=== PATIENT | male | born 1950 | race American Indian/Alaskan Native ===

== ENCOUNTER 2018-01-18 08:39 | Emergency (ER) | payer MEDICARE ==
[2018-01-18 09:11] VITALS: BP 170/98; PULSE 77; RESP 16; TEMP 98.7; O2SAT 98
--- NOTE | 2018-01-18 09:36 | C.PDOC ---
History Of Present Illness 67 yo male, hx of htn, dm, presents iwth low back pain x 2 weeks. pt states "he bent over" to case picker object and "tweaked his back". pt states he has worsening b/l back pain, with pain going down legs. did not see pmd. no direct trauma. no fevers, no hematuria, pain worse with movement, no saddle anesthesia. no urinary changes. pt refuses xr, prefers to obtain mri with his pmd. Time Seen by Provider: 01/18/18 09:27 Chief Complaint (Nursing): Back Pain Past Medical History Reviewed: Historical Data, Nursing Documentation, Vital Signs Vital Signs: Last Vital Signs Temp 98.7 F 01/18/18 09:09 Pulse 77 01/18/18 09:09 Resp 16 01/18/18 09:09 BP 170/98 H 01/18/18 09:09 Pulse Ox 98 01/18/18 09:09 - Medical History PMH: HTN - [employer] Procedures INSERT INDWELLING CATH (04/23/07) Family History: States: Unknown Family Hx - Social History Hx Alcohol Use: No Hx Substance Use: No - Immunization History Hx Tetanus Toxoid Vaccination: No Hx Influenza Vaccination: Yes Hx Pneumococcal Vaccination: Yes Review Of Systems Musculoskeletal: Positive for: Back Pain Physical Exam - Physical Exam Appears: Well, No Acute Distress, Other (comfortable in nad, observed ambulatory ) Skin: Normal Color, Warm, Dry Eye(s): bilateral: Normal Inspection, PERRL, EOMI Nose: Normal Throat: Normal Neck: Normal Cardiovascular: Rhythm Regular Respiratory: Normal Breath Sounds Gastrointestinal/Abdominal: Normal Exam, Soft, No Tenderness, No Guarding, No Rebound Back: Normal Inspection, No CVA Tenderness, No Vertebral Tenderness, Paraspinal Tenderness, Straight Leg Raising ((+)left >r gith) Extremity: Normal ROM ED Course And Treatment O2 Sat by Pulse Oximetry: 98 Medical Decision Making Medical Decision Making: suspect msk pain. pt declines xr, prefers outpt mri. neuro intact, no saddle anestheisa, no numbness. no urinary changes. >2 weeks of symptoms, advise outpt fu. Disposition - Disposition Disposition: HOME/ ROUTINE Disposition Time: 09:36 Condition: STABLE Additional Instructions: you are declining an xray. you should follow up with your doctor to obtain an mri/ and other imaging. return to any er with worsening symptoms or concerns. Prescriptions: Cyclobenzaprine [Cyclobenzaprine HCl] 10 mg PO DAILY PRN #10 tab PRN Reason: Muscle Spasm Naproxen 500 mg PO BID PRN #14 tablet PRN Reason: Pain, Mild (1-3) Instructions: Low Back Pain in Adults, Do I Need an X-ray (or Other Test) for Low Back Pain? - Clinical Impression Clinical Impression: Low back pain
== END 2018-01-18 09:58 | disposition home or self-care (01) ==
LOC: C.ER 08:39
DX: M54.5 Low back pain (principal)
CPT/HCPCS: 96372; 99283; J1885